=== PATIENT | male | born 2000 | race Caucasian/White ===

== ENCOUNTER 2024-09-16 20:02 | Emergency (ER) | payer SELFPAY ==
[~2024-09-16] VITALS: Ht 180.3 cm; Wt 111.0 kg
[2024-09-16 20:08] VITALS: O2SAT 100
[2024-09-16] MEDS ORDERED: PENI500T MT (23:19)
[2024-09-16] MEDS ORDERED: IBUP-2029 MT (23:19)
[2024-09-16 23:29] VITALS: BP 128/86; PULSE 98; RESP 12; TEMP 36.8; O2SAT 98
== END 2024-09-16 23:32 | disposition home or self-care (01) ==
LOC: ER 20:02
DX: J02.0 Streptococcal pharyngitis (principal)
CPT/HCPCS: 87430; 99283